=== PATIENT | male | born 2005 | race Two or more races ===

== ENCOUNTER 2023-04-06 12:27 | Emergency (ER) | payer SELFPAY ==
[~2023-04-06] VITALS: Ht 172.7 cm; Wt 65.0 kg
[2023-04-06 14:48] VITALS: BP 126/80
[2023-04-06] MEDS ORDERED: ONDANSETRON ODT 4 MG TAB PO ONE (15:00)
[2023-04-06] MEDS ORDERED: ACETAMINOPHEN 500 MG TAB PO ONE (15:00)
[2023-04-06] MEDS ORDERED: MECL-111 PO (16:00)
[2023-04-06] MEDS ORDERED: CYCL-839 PO (16:00)
[2023-04-06] MEDS ORDERED: IBUP600T28 PO (16:00)
[2023-04-06] MEDS ORDERED: ONDA-144 PO (16:00)
[2023-04-06] MEDS ORDERED: MECLIZINE HCL 25 MG TAB PO ONE (16:00)
== END 2023-04-06 16:11 | disposition home or self-care (01) ==
LOC: EDBD 12:27 → ER 12:27
DX: S53.492A Other sprain of left elbow, initial encounter (principal); Z79.899 Other long term (current) drug therapy; V49.9XXA Car occupant (driver) (passenger) injured in unspecified traffic accident, initial encounter; Y93.89 Activity, other specified; Y92.89 Other specified places as the place of occurrence of the external cause; Y99.8 Other external cause status
CPT/HCPCS: 70450; 71101; 72070; 72125; 73080; 99284; Q0162